=== PATIENT | female | born 1930 | race Caucasian/White ===

== ENCOUNTER 2020-08-31 23:08 | Observation (INO) ==
[2020-09-01 04:09] LABS: Adenovirus Not Detected (Not Detect); Bordetella Pertussis Not Detected (Not Detect); Chlamydophila pneumoniae Not Detected (Not Detect); Coronavirus 229E Not Detected (Not Detect); Coronavirus HKU1 Not Detected (Not Detect); Coronavirus NL63 Not Detected (Not Detect); Coronavirus OC43 Not Detected (Not Detect); Human Metapneumovirus Not Detected (Not Detect); Human Rhinovirus/Enterovirus Not Detected (Not Detect); Influenza A Subtype 2009 H1 Not Detected (Not Detect); Influenza B Not Detected (Not Detect); Mycoplasma pneumoniae Not Detected (Not Detect); Parainfluenza Virus 1 Not Detected (Not Detect); Parainfluenza Virus 2 Not Detected (Not Detect); Parainfluenza Virus 3 Not Detected (Not Detect); Parainfluenza Virus 4 Not Detected (Not Detect); Respiratory Syncytial Virus Not Detected (Not Detect); SARS-CoV-2 Not Detected (Not Detect)
[2020-09-01] MEDS ORDERED: Naloxone 0.4 MG/ML INJ IVP PRN (04:37)
[2020-09-01] MEDS ORDERED: Acetaminophen 325 MG TABLET PO PRN (04:37)
[2020-09-01] MEDS ORDERED: *HR* Promethazine 25 MG/ML VIAL IVP PRN (04:37)
[2020-09-01] MEDS ORDERED: Perflutren Lipid Microsphere 1.3 ML in 0.9 % Sodium Chloride 8.7 ML IVP PRN (04:40)
[2020-09-01] MEDS ORDERED: *HR* Heparin 5,000 UNIT/ML VIAL IVP PRN ×2 (05:56)
[2020-09-01] MEDS ORDERED: Heparin 25,000UNIT/250ML 1/2NS 25,000 UNIT/250 ML IV.SOLN IVC SCH (06:00)
[2020-09-01] MEDS ORDERED: *HR* Metoprolol 5 MG/5 ML VIAL IVP PRN (06:03)
[2020-09-01 06:48] LABS: Basophils % 0.5 %; Eosinophils # 0.2 K/mcL (0.0-0.6); Eosinophils % 2.5 %; Hematocrit 40.2 % (35.3-44.9); Hematocrit 40.6 % (35.3-44.9); Hemoglobin 11.7 g/dL (11.5-15.4); Hemoglobin 11.8 g/dL (11.5-15.4); Immature Granulocytes % 0.2 % (0-4); Lymphocytes # 0.7 K/mcL (0.6-4.6); Mean Corpuscular HGB Conc 29.1 g/dL (31.6-35.5); Mean Corpuscular Hemoglobin 27.8 pg (28.0-33.3); Mean Corpuscular Hemoglobin 27.9 pg (28.0-33.3); Mean Corpuscular Volume 95.5 fL (83.0-100.0); Mean Platelet Volume 10.4 fL (9.4-12.4); Mean Platelet Volume 10.6 fL (9.4-12.4); Monocytes # 0.7 K/mcL (0.0-1.3); Neutrophils # 4.4 K/mcL (1.6-8.9); Platelet Count 205 K/mcL (140-400); Platelet Count 206 K/mcL (140-400); Red Blood Count 4.21 M/mcL (3.82-4.97); Red Blood Count 4.23 M/mcL (3.82-4.97); Red Cell Distribution Width 15.3 % (11.5-14.5); Segmented Neutrophils % 72.8 %; White Blood Count 6.1 K/mcL (4.3-11.1)
[2020-09-01 06:57] LABS: INR 1.1; Prothrombin Time 12.9 Seconds (9.4-12.1)
[2020-09-01 07:07] LABS: Heparin anti-factor XA UFH 1.51 IU/mL (0.30-0.70)
[2020-09-01 07:08] LABS: Chol/HDL Ratio 3.3 (0-4.9); Magnesium 1.9 mg/dL (1.6-2.6); Phosphorous 3.5 mg/dL (2.7-4.5)
[2020-09-01 07:09] LABS: Alanine Aminotransferase 30 Units/L (7-52); Albumin 3.9 g/dL (3.5-5.7); Albumin/Globulin Ratio 1.9 (1.1-2.2); Alkaline Phosphatase 67 Units/L (34-104); Aspartate Amino Transferase 24 Units/L (13-39); BUN/Creatinine Ratio 31 (6-26); Bilirubin,Total 0.5 mg/dL (0.3-1.0); Blood Urea Nitrogen 25 mg/dL (8-23); Calcium 9.3 mg/dL (8.6-10.3); Carbon Dioxide 29 mEq/L (23-29); Chloride 105 mEq/L (98-107); Globulin 2.1 g/dL (2.4-3.5); Glucose 111 mg/dL (70-105); Osmolality,Calculated 295 (280-300); Potassium 4.1 mEq/L (3.5-5.1); Sodium 140 mEq/L (136-145); eGFR For African Americans > 60 (> 60); eGFR For Non-African Americans > 60 (> 60)
[2020-09-01] MEDS ORDERED: Metoprolol XL (24 HR) Succ 25 MG TAB.ER.24H PO SCH (09:00)
[2020-09-01 12:00] VITALS: BP 165/92
[2020-09-01] MEDS ORDERED: Morphine Sulfate Oral CONC 10 MG/0.5 ML ORAL.SYG SL PRN (12:08)
== END 2020-09-01 15:09 | disposition hospice, inpatient (51) ==
LOC: CDU → 2ANU 09-01 04:22
PROVIDERS: ADMIT Internal Medicine; ATTEND Internal Medicine